=== PATIENT | female | born 1960 | race Caucasian/White ===

== ENCOUNTER 2020-06-05 19:00 | Outpatient (REF) | payer BC, SELFPAY ==
--- NOTE | 2020-06-05 16:00 | PAPFT_PTH ---
PATIENT: Camila Guallpa [facility]: [facility] U#:[id number] AGE/SX: 59/F ROOM: RE06/05/[address]: Zeny Olsen : 1960 BED: DIS: 06/05/2020 SPEC #: [id number] RECD: 06/06/20 12:50 STATUS: OMAR STONE #: [id number] VALERIA: 06/05/20 16:[address]: Zeny Carlton DEPT: [facility] Cytology RECD BY: Etta Zuniga ENTERED: 06/06/20 12:50 SP TYPE: PAPFT OTHR DR: Mitzy Holt Tissues: 1 - CX/ENDOCX FOR PAP SMEARS Procedures: PAP THIN PREP/[facility] Screening HPV DNA PROBE Comments: [id number]
[2020-06-05 21:46] LABS: Calculated LDL 88 mg/dL (<100); Cholesterol 174 mg/dL (<200); HDL Cholesterol 75 mg/dL (40-60); TSH 2.79 uIU/mL (0.36-3.74); Triglyceride 56 mg/dL (<150)
== END 2020-06-05 19:20 ==
LOC: NCHCN 19:00
PROVIDERS: PCP Nurse Practitioner Family; Visit Provider Nurse Practitioner Family
DX: Z00.00 Encounter for general adult medical examination without abnormal findings (principal); M54.5 Low back pain; Z13.220 Encounter for screening for lipoid disorders; Z13.29 Encounter for screening for other suspected endocrine disorder; Z12.4 Encounter for screening for malignant neoplasm of cervix; Z11.51 Encounter for screening for human papillomavirus (HPV)
CPT/HCPCS: 80061; 88142; 84443; 87624

== ENCOUNTER 2022-01-22 17:46 | Outpatient (REF) | payer BC, SELFPAY ==
[2022-01-22 15:16] LABS: HCT 38.4 % (36.0-46.0); HGB 12.9 g/dL (11.2-15.7); MCH 30.1 pg (27.0-33.0); MCHC 33.6 % (32.0-36.0); MCV 90 fL (80-95); MPV 10.8 fL (8.0-11.0); Platelet Count 211 10^3/uL (130-400); RBC 4.29 10^6/uL (3.93-5.22); RDW 12.5 % (11.7-14.6); WBC 3.76 10^3/uL (4.4-10.8)
[2022-01-22 15:38] LABS: ALT 29 U/L (14-59); AST 24 U/L (15-37); Albumin 3.9 g/dL (3.4-5.0); Alkaline Phosphatase 64 U/L (46-116); Anion Gap 6.5 mmol/L (3-11); BUN 16 mg/dL (7-18); Bilirubin, Total 0.4 mg/dL (0.2-1.0); CO2 29.5 mmol/L (21.0-32.0); Calcium 9.6 mg/dL (8.5-10.1); Chloride 105 mmol/L (98-107); Glucose 88 mg/dL (74-106); Potassium 4.5 mmol/L (3.5-5.1); Sodium 141 mmol/L (136-145); Total Protein 7.6 g/dL (6.4-8.2)
[2022-01-24 05:47] LABS: Vitamin D 25 Total 25.5 ng/mL (30-100)
== END 2022-01-22 17:47 | disposition home or self-care (01) ==
LOC: NCHCN 17:46
PROVIDERS: PCP Nurse Practitioner Family; Visit Provider Nurse Practitioner Family
DX: Z01.812 Encounter for preprocedural laboratory examination (principal); Z11.2 Encounter for screening for other bacterial diseases
CPT/HCPCS: 80053; 82306; 85027; 87081; 87641

== ENCOUNTER 2023-08-20 14:48 | Outpatient (REF) | payer BC, SELFPAY ==
[2023-08-20 21:20] LABS: HCT 38.1 % (36.0-46.0); HGB 12.8 g/dL (11.2-15.7); MCH 30.4 pg (27.0-33.0); MCHC 33.6 % (32.0-36.0); MCV 91 fL (80-95); MPV 10.7 fL (8.0-11.0); Platelet Count 212 10^3/uL (130-400); RBC 4.21 10^6/uL (3.93-5.22); RDW 12.4 % (11.7-14.6); RDW-SD 40.9 fL; WBC 3.87 10^3/uL (4.4-10.8)
[2023-08-20 21:40] LABS: ALT 36 U/L (14-59); AST 29 U/L (15-37); Albumin 4.1 g/dL (3.4-5.0); Alkaline Phosphatase 72 U/L (46-116); Anion Gap 9.2 mmol/L (3-11); BUN 20 mg/dL (7-18); Bilirubin, Total 0.3 mg/dL (0.2-1.0); CO2 27.8 mmol/L (21.0-32.0); CREATININE 0.9 mg/dL (0.55-1.02); Calcium 9.5 mg/dL (8.5-10.1); Chloride 106 mmol/L (98-107); Estimated GFR 70.95 (mL/min/1.73m2); Glucose 96 mg/dL (74-106); Potassium 4.4 mmol/L (3.5-5.1); Sodium 143 mmol/L (136-145); TSH (W/Ref FT4) 2.35 uIU/mL (0.36-3.74); Total Protein 7.6 g/dL (6.4-8.2)
== END 2023-08-20 14:49 | disposition home or self-care (01) ==
LOC: NCHCN 14:48
PROVIDERS: PCP Nurse Practitioner Family; Visit Provider Physician Assistant
DX: Z13.31 Encounter for screening for depression (principal)
CPT/HCPCS: 80053; 85027; 84443

== ENCOUNTER 2024-08-09 14:47 | Outpatient (REF) | payer MEDICARE, SELFPAY ==
[2024-08-09 21:29] LABS: HCT 39.5 % (36.0-46.0); HGB 13.3 g/dL (11.2-15.7); MCH 30.4 pg (27.0-33.0); MCHC 33.7 % (32.0-36.0); MCV 90 fL (80-95); MPV 10.4 fL (8.0-11.0); Platelet Count 209 10^3/uL (130-400); RBC 4.37 10^6/uL (3.93-5.22); RDW 12.6 % (11.7-14.6); RDW-SD 41.6 fL; WBC 6.08 10^3/uL (4.4-10.8)
[2024-08-09 22:07] LABS: ALT 32 U/L (14-59); AST 24 U/L (15-37); Albumin 3.8 g/dL (3.4-5.0); Alkaline Phosphatase 84 U/L (46-116); BUN 22 mg/dL (7-18); Bilirubin, Total 0.2 mg/dL (0.2-1.0); CREATININE 0.9 mg/dL (0.55-1.02); Calcium 9.4 mg/dL (8.5-10.1); Calculated LDL 104 mg/dL (<100); Chloride 106 mmol/L (98-107); Cholesterol 196 mg/dL (<200); Estimated GFR 70.51 (mL/min/1.73m2); Glucose 93 mg/dL (74-106); HDL Cholesterol 71 mg/dL (>or=50); Potassium 4.4 mmol/L (3.5-5.1); Sodium 142 mmol/L (136-145); TSH 1.89 uIU/mL (0.36-3.74); Total Protein 7.2 g/dL (6.4-8.2); Triglyceride 106 mg/dL (<150); Vitamin D 25 Total 37 ng/mL (30-100)
== END 2024-08-09 14:48 | disposition home or self-care (01) ==
LOC: NCHCN 14:47
PROVIDERS: PCP Nurse Practitioner Family; Visit Provider Nurse Practitioner Family
DX: M85.89 Other specified disorders of bone density and structure, multiple sites (principal); D64.9 Anemia, unspecified
CPT/HCPCS: 80053; 80061; 82306; 85027; 84443